=== PATIENT | female | born 1935 | race Caucasian/White ===

== ENCOUNTER 2018-05-09 09:31 | Day surgery (SDC) | payer OTHER, MEDICARE ==
[2018-05-09 10:09] VITALS: BMI 22.6
[2018-05-09 11:29] VITALS: TEMP 97.6
[2018-05-09 12:45] VITALS: BP 133/63; PULSE 72
== END 2018-05-09 12:47 | disposition home or self-care (01) ==
LOC: JASU-ENDO 09:31
PROVIDERS: ATTEND Internal Medicine Gastroenterology
PROC: 0DJD8ZZ Inspection of Lower Intestinal Tract, Via Natural or Artificial Opening Endoscopic (ICD-10-PCS; principal; 2018-05-09 09:45)
DX: Z86.010 Personal history of colon polyps (principal); K57.30 Diverticulosis of large intestine without perforation or abscess without bleeding; E03.9 Hypothyroidism, unspecified; E78.5 Hyperlipidemia, unspecified

== ENCOUNTER 2020-12-09 09:35 | Emergency (ER) | payer OTHER, MEDICARE ==
[2020-12-09 10:07] VITALS: TEMP 98; BMI 23.1
[2020-12-09] MEDS ORDERED: SODIUM CHLORIDE 500 ML IV STA (10:20)
[2020-12-09] MEDS ORDERED: MECLIZINE HCL 25 MG TABLET (FP) PO ONE (10:20)
[2020-12-09] MEDS ORDERED: MECLIZINE HCL 25 MG TABLET (FP) ONE (10:54)
[2020-12-09 11:33] LABS: BASO % 0.7 % (0-2.0); EOS % 1.1 % (0-4.5); HEMATOCRIT 40.3 % (32.4-45.2); HEMOGLOBIN 14.1 GM/dL (10.7-15.3); MCH 32.5 pg (25.7-33.7); MEAN CELL VOLUME 92.8 fl (80-96); MEAN PLT VOLUME 9.1 fl (7.5-11.1); MONO % 5.9 % (3.8-10.2); NEUT % 74.3 % (42.8-82.8); PLATELET COUNT 226 K/MM3 (134-434); RBC 4.35 M/mm3 (3.60-5.2); RDW 13.4 % (11.6-15.6)
[2020-12-09 11:57] LABS: EPI CELLS 8 /uL (0-25.1); HYALINE CASTS 0 /uL (0-3.1); URINE APPEARANCE CLEAR; URINE BACTERIA 51 /uL (0-1359); URINE BILIRUBIN NEGATIVE (NEGATIVE); URINE COLOR YELLOW; URINE GLUCOSE (UA) NEGATIVE (NEGATIVE); URINE KETONE NEGATIVE (NEGATIVE); URINE LEUK ESTERASE TRACE (NEGATIVE); URINE NITRITE NEGATIVE (NEGATIVE); URINE PROTEIN NEGATIVE (NEGATIVE); URINE RBC 2 /uL (0-23.9); URINE UROBILINOGEN 0.2 mg/dL (0.2-1.0); URINE WBC 8 /uL (0-25.8)
[2020-12-09 12:00] LABS: CHLORIDE 109 mmol/L (98-107); SODIUM 140 mmol/L (136-145)
[2020-12-09 12:02] LABS: ANION GAP 6 MMOL/L (8-16); CALCIUM 9.1 mg/dL (8.5-10.1); CO2 25 mmol/L (21-32); GLUCOSE,RANDOM 92 mg/dL (74-106)
[2020-12-09 12:03] LABS: ALBUMIN 3.6 g/dl (3.4-5.0)
[2020-12-09 12:05] LABS: SGOT/AST 49 U/L (15-37); SGPT/ALT 29 U/L (13-61)
[2020-12-09 12:06] LABS: CREATININE 0.8 mg/dL (0.55-1.3)
[2020-12-09 12:07] LABS: BILIRUBIN,TOTAL 0.5 mg/dL (0.2-1); TOT PROT 6.5 g/dl (6.4-8.2)
[2020-12-09 12:08] LABS: ALK PHOS 106 U/L (45-117)
[2020-12-09 12:38] VITALS: BP 147/72; PULSE 71
== END 2020-12-09 12:48 | disposition home or self-care (01) ==
LOC: JER 09:35
DX: R42 Dizziness and giddiness (principal)
CPT/HCPCS: 36415; 70450-TC; 71045-TC-FY; 80053; 81003; 82550; 84484; 85025; 87086; 93005; 93010; 99285-25

== ENCOUNTER 2021-02-04 15:59 | Emergency (ER) | payer OTHER, MEDICARE ==
[2021-02-04 16:23] VITALS: BMI 22.3
[2021-02-04 18:21] VITALS: BP 110/87; PULSE 78
== END 2021-02-04 18:21 | disposition home or self-care (01) ==
LOC: JER 15:59
DX: S09.90XA Unspecified injury of head, initial encounter (principal)
CPT/HCPCS: 70450-TC; 70486-TC; 99284-25

== ENCOUNTER 2022-11-11 19:36 | Inpatient (IN) | payer OTHER, MEDICARE ==
[2022-11-11 21:13] LABS: HEMATOCRIT 40.3 % (32.4-45.2); HEMOGLOBIN 14.2 G/dL (10.7-15.3); MCH 32.5 pg (25.7-33.7); MCHC 35.3 g/dl (32.0-36.0); MEAN CELL VOLUME 91.9 fl (80-96); MEAN PLT VOLUME 8.4 fl (7.5-11.1); PLATELET COUNT 205.1 10^3/uL (134-434); RBC 4.38 10^6/uL (3.60-5.2); RDW 13.2 % (11.6-15.6); WHITE BLOOD COUNT 15.2 10^3/uL (4.0-10.8)
[2022-11-11 21:16] LABS: ALBUMIN 3.5 g/dl (3.4-5.0); BILIRUBIN,TOTAL 0.7 mg/dl (0.2-1); CALCIUM 8.5 mg/dl (8.5-10); CREATININE 0.7 mg/dl (0.55-1.3)
[2022-11-11] MEDS ORDERED: CEFTRIAXONE 1,000 MG in DEXTROSE 5%-WATER - 50 ML IVPB ONE (22:23)
[2022-11-11] MEDS ORDERED: DOXYCYCLINE INJECTION 100 MG in DEXTROSE 5%-WATER 100 ML IVPB ONE (22:23)
[2022-11-11] MEDS ORDERED: cefTRIAXone SODIUM 1 GM VIAL ONE (22:24)
[2022-11-11] MEDS ORDERED: DOXYCYCLINE HYCLATE 100 MG VIAL ONE (22:34)
[2022-11-11 23:14] LABS: EPITHELIAL CELLS FEW /hpf
[2022-11-12 00:57] VITALS: BMI 25.0
[2022-11-12] MEDS ORDERED: DEXAMETHASONE SOD PHOSPHATE 4 MG/1 ML VIAL IVPUSH ONE (05:26)
[2022-11-12] MEDS ORDERED: ALBUTEROL SO4 HFA INHALER IH PRN (05:29)
[2022-11-12] MEDS: LEVOTHYROXINE NA 25 MCG TABLET (FP) PO SCH (06:01)
[2022-11-12] MEDS ORDERED: MECLIZINE HCL 12.5 MG TABLET PO PRN ×2 (07:30→07:31)
[2022-11-12] MEDS: ALBUTEROL SO4 2.5/IPRATROPIUM 0.5 INH SOL 3 ML VIAL.NEB. NEB SCH ×3 (08:22→19:53)
[2022-11-12 09:23] LABS: CALCIUM 8.7 mg/dl (8.5-10); CREATININE 0.8 mg/dl (0.55-1.3); MAGNESIUM 2.2 mg/dL (1.8-2.4)
[2022-11-12] MEDS: ENOXAPARIN NA (PORCINE) 40 MG/0.4 ML DISP.SYRIN SQ SCH (09:40)
[2022-11-12] MEDS: LORATADINE 10 MG TABLET PO SCH ×2 (09:40→09:47)
[2022-11-12] MEDS: CEFTRIAXONE 1 GM in DEXTROSE 5%-WATER - 50 ML IVPB SCH (09:41)
[2022-11-12] MEDS ORDERED: HEPARIN NA (PORCINE) 5,000 UNITS/ML 1ML VIAL SQ SCH (10:00)
[2022-11-12] MEDS ORDERED: DOXYCYCLINE INJECTION 100 MG in DEXTROSE 5%-WATER 100 ML IVPB SCH (10:00)
[2022-11-12 11:37] LABS: BASO % 0.2 % (0-2.0); EOS % 1.1 % (0-4.5); HEMOGLOBIN 12.4 GM/dL (10.7-15.3); MCH 30.2 pg (25.7-33.7); MCHC 33.5 g/dl (32.0-36.0); MEAN CELL VOLUME 90.1 fl (80-96); MEAN PLT VOLUME 8.9 fl (7.5-11.1); MONO % 5.3 % (3.8-10.2); NEUT % 78.4 % (42.8-82.8); PLATELET COUNT 191 10^3/uL (134-434); RDW 13.2 % (11.6-15.6); WHITE BLOOD COUNT 10.7 K/mm3 (4.0-10.0)
[2022-11-12] MEDS: ROSUVASTATIN CA 20 MG TABLET PO SCH (21:41)
[2022-11-13] MEDS: ALBUTEROL SO4 2.5/IPRATROPIUM 0.5 INH SOL 3 ML VIAL.NEB. NEB SCH ×5 (01:30→21:55)
[2022-11-13] MEDS: LEVOTHYROXINE NA 25 MCG TABLET (FP) PO SCH (06:53)
[2022-11-13 09:26] LABS: CALCIUM 9.3 mg/dl (8.5-10); CREATININE 0.8 mg/dl (0.55-1.3); MAGNESIUM 2.2 mg/dL (1.8-2.4); PHOSPHOROUS 3.4 mg/dl (2.5-4.9)
[2022-11-13] MEDS ORDERED: POLYETHYLENE GLYCOL (HEALTHYLAX) 3350 17 GM PACKET PO SCH (10:00)
[2022-11-13] MEDS ORDERED: DEXAMETHASONE SOD PHOSPHATE 4 MG/1 ML VIAL IVPUSH SCH (10:00)
[2022-11-13 10:10] LABS: HEMATOCRIT 37.7 % (32.4-45.2); HEMOGLOBIN 13.1 G/dL (10.7-15.3); MCH 32.1 pg (25.7-33.7); MCHC 34.8 g/dl (32.0-36.0); MEAN CELL VOLUME 92.5 fl (80-96); MEAN PLT VOLUME 8.9 fl (7.5-11.1); RBC 4.08 10^6/uL (3.60-5.2); RDW 13.8 % (11.6-15.6); WHITE BLOOD COUNT 11.6 10^3/uL (4.0-10.8)
[2022-11-13] MEDS: LACTOBACILLUS ACIDOPHILUS 1 TABLET PO SCH (10:23)
[2022-11-13] MEDS: LORATADINE 10 MG TABLET PO SCH (10:23)
[2022-11-13] MEDS: CEFTRIAXONE 1 GM in DEXTROSE 5%-WATER - 50 ML IVPB SCH (10:23)
[2022-11-13] MEDS: ENOXAPARIN NA (PORCINE) 40 MG/0.4 ML DISP.SYRIN SQ SCH (10:23)
[2022-11-13 12:35] LABS: PLATELET ESTIMATE ADEQUATE
[2022-11-13] MEDS: ROSUVASTATIN CA 20 MG TABLET PO SCH (21:55)
[2022-11-14] MEDS: LEVOTHYROXINE NA 25 MCG TABLET (FP) PO SCH ×2 (06:29→06:34)
[2022-11-14] MEDS: CEFTRIAXONE 1 GM in DEXTROSE 5%-WATER - 50 ML IVPB SCH (09:31)
[2022-11-14] MEDS: LORATADINE 10 MG TABLET PO SCH (09:35)
[2022-11-14] MEDS: LACTOBACILLUS ACIDOPHILUS 1 TABLET PO SCH (09:35)
[2022-11-14] MEDS: ALBUTEROL SO4 2.5/IPRATROPIUM 0.5 INH SOL 3 ML VIAL.NEB. NEB SCH (09:35)
[2022-11-14] MEDS: ENOXAPARIN NA (PORCINE) 40 MG/0.4 ML DISP.SYRIN SQ SCH (09:36)
[2022-11-14 09:55] VITALS: BP 116/57; PULSE 78; RESP 18; TEMP 97.2
[2022-11-14 11:34] LABS: BASO % 0.4 % (0-2.0); EOS % 1.9 % (0-4.5); HEMATOCRIT 39.4 % (32.4-45.2); HEMOGLOBIN 13.2 GM/dL (10.7-15.3); MCH 31.2 pg (25.7-33.7); MCHC 33.6 g/dl (32.0-36.0); MEAN CELL VOLUME 93.1 fl (80-96); MEAN PLT VOLUME 9.4 fl (7.5-11.1); MONO % 6.5 % (3.8-10.2); NEUT % 63.2 % (42.8-82.8); PLATELET COUNT 226 10^3/uL (134-434); RBC 4.23 M/mm3 (3.60-5.2); RDW 13.6 % (11.6-15.6)
== END 2022-11-14 12:51 | disposition home or self-care (01) | DRG 177 ==
LOC: FER 19:36 → INTOOBSV 11-12 00:05 → FM/S 11-12 00:05 → UNDOADMOB 11-12 00:05 → FM/S 11-12 07:33 → OBSVTOIN 11-12 12:36
PROVIDERS: ADMIT Internal Medicine; ATTEND Internal Medicine
PROC: 3E0333Z Introduction of Anti-inflammatory into Peripheral Vein, Percutaneous Approach (ICD-10-PCS; principal; 2022-11-12)
DX: U07.1 COVID-19 (principal); J12.82 Pneumonia due to coronavirus disease 2019; C85.90 Non-Hodgkin lymphoma, unspecified, unspecified site; E78.00 Pure hypercholesterolemia, unspecified; E03.9 Hypothyroidism, unspecified; I10 Essential (primary) hypertension; R09.02 Hypoxemia; D72.829 Elevated white blood cell count, unspecified; R42 Dizziness and giddiness
CPT/HCPCS: 0241U-QW; 36415; 71045-TC-FY; 80048; 80053; 81003; 81015; 82550; 82728; 83605; 83615; 83735; 84100; 84484; 85025; 85027; 85379; 86140; 87040; 87086; 87186; 87899; 93005; 94640; 97116-GP; 97162-GP; 99285-25; G0378

== ENCOUNTER 2024-04-02 14:27 | Observation (INO) | payer OTHER, MEDICARE ==
[2024-04-02 14:57] VITALS: RESP 18; BMI 25.7
[2024-04-02] MEDS: SODIUM CHLORIDE 500 ML IV STA (15:50)
[2024-04-02 16:22] LABS: HEMATOCRIT 41.5 % (32.4-45.2); HEMOGLOBIN 13.9 G/dL (10.7-15.3); MCH 31.9 pg (25.7-33.7); MCHC 33.6 g/dl (32.0-36.0); MEAN CELL VOLUME 94.9 fl (80-96); PLATELET COUNT 175.1 10^3/uL (134-434); RBC 4.37 10^6/uL (3.60-5.2); RDW 13.9 % (11.6-15.6); WHITE BLOOD COUNT 6.6 10^3/uL (4.0-10.8)
[2024-04-02 16:37] LABS: PLATELET ESTIMATE ADEQUATE
[2024-04-02 16:40] LABS: ALBUMIN 4.2 g/dl (3.4-5.0); BILIRUBIN,TOTAL 0.6 mg/dl (0.2-1); CALCIUM 9.3 mg/dl (8.5-10.1); CREATININE 0.9 mg/dl (0.6-1.3); TOT PROT 6.1 g/dl (6.4-8.2)
[2024-04-02] MEDS ORDERED: GABAPENTIN 100 MG CAPSULE PO SCH (22:00)
[2024-04-02] MEDS: ROSUVASTATIN CA 20 MG TABLET PO ONE (22:50)
[2024-04-03] MEDS: LEVOTHYROXINE NA 25 MCG TABLET (FP) PO SCH (06:05)
[2024-04-03 08:04] LABS: CALCIUM 9.2 mg/dl (8.5-10.1); CREATININE 0.9 mg/dl (0.6-1.3); POTASSIUM 3.7 mmol/L (3.5-5.1)
[2024-04-03] MEDS: FAMOTIDINE 20 MG TABLET PO SCH (10:14)
[2024-04-03 10:39] LABS: BASO % 0.7 % (0-2.0); EOS % 3.6 % (0-4.5); HEMATOCRIT 42.9 % (32.4-45.2); HEMOGLOBIN 14.8 GM/dL (10.7-15.3); LYMPH % 32.1 % (8-40); MCH 31.8 pg (25.7-33.7); MCHC 34.4 g/dl (32.0-36.0); MEAN CELL VOLUME 92.3 fl (80-96); MEAN PLT VOLUME 8.7 fl (7.5-11.1); MONO % 8.6 % (3.8-10.2); PLATELET COUNT 185 10^3/uL (134-434); RBC 4.65 M/mm3 (3.60-5.2); RDW 13.9 % (11.6-15.6); WHITE BLOOD COUNT 4.3 K/mm3 (4.0-10.0)
[2024-04-03 10:48] VITALS: BP 131/60; PULSE 67; TEMP 97.8
[2024-04-03] MEDS ORDERED: ROSUVASTATIN CA 20 MG TABLET PO SCH (22:00)
== END 2024-04-03 13:24 | disposition home or self-care (01) ==
LOC: FER 14:27 → FM/S 17:42
PROVIDERS: ADMIT Internal Medicine
PROC: 3E0337Z Introduction of Electrolytic and Water Balance Substance into Peripheral Vein, Percutaneous Approach (ICD-10-PCS; principal; 2024-04-02)
DX: R42 Dizziness and giddiness (principal); R00.2 Palpitations; R55 Syncope and collapse; E78.5 Hyperlipidemia, unspecified; C85.90 Non-Hodgkin lymphoma, unspecified, unspecified site; Z86.16 Personal history of COVID-19; E03.9 Hypothyroidism, unspecified; I10 Essential (primary) hypertension; Z90.49 Acquired absence of other specified parts of digestive tract; R73.03 Prediabetes; Z88.2 Allergy status to sulfonamides; Z87.891 Personal history of nicotine dependence
CPT/HCPCS: 0241U-QW; 36415; 70450-TC; 71045-TC-FY; 80048; 80053; 81003; 81015; 84443; 84484; 85025; 85027; 87086; 87186; 93005; 96360; 97116-GP; 99285-25; G0378